=== PATIENT | female | born 1935 | race Caucasian/White ===

== ENCOUNTER 2017-04-29 08:10 | Inpatient (IN) | payer BC, OTHER ==
--- NOTE | 2017-04-03 10:54 | HISTORY & PHYSICAL EXAMINATION ---
DATE OF ADMISSION: 04/29/2017 PROCEDURE: Left knee replacement. HISTORY OF PRESENT ILLNESS: Angelia is a pleasant 81-year-old female who presents for preop evaluation prior to left knee replacement. She states she has been having pain in this knee for several years now which has gradually worsened. She had a previous knee arthroscopy in 2001, has tried oral anti-inflammatories, done physical therapy, tried a cortisone injection as well as viscosupplementation without relief. At this point in time, has failed conservative management and would like to proceed with left knee replacement. PAST MEDICAL HISTORY: 1. Hypertension. 2. History of pulmonary embolism. 3. Coronary artery disease, status post cardiac catheterization, most recent in 2010. 4. Osteoarthritis. 5. GERD. 6. Obesity. ALLERGIES: DEMEROL CAUSES VOMITING. MEDICATIONS: 1. Eliquis. 2. Metoprolol. 3. Nexium. 4. Calcium. 5. Valsartan. PAST SURGICAL HISTORY: 1. Ovarian cyst removed 1959. 2. Hysterectomy in 1969. 3. Laparoscopy in 1970. 4. Breast biopsy in 1978. 5. Left foot big toe surgery in 1979. 6. Closed reduction wrist fracture in 1990. 7. Cardiac catheterization 07/1997. 8. Excision of mass left groin 05/2001. 9. Left knee arthroscopy 04/2002. 10. Bone cyst removed from right index finger 2003. 11. Rectocele repair in 2005. 12. Cardiac catheterization in 2008 with stent to the LAD. 13. Cardiac catheterization and stent in 2010. FAMILY HISTORY: Noncontributory. SOCIAL HISTORY: The patient is and lives in a 1-story home with her , is self-employed. REVIEW OF SYSTEMS: Otherwise negative. Please see HPI for pertinent positives. PHYSICAL EXAMINATION: GENERAL: Tulio 81-year-old female in no acute distress, alert and oriented x3. VITAL SIGNS: She is 5 feet 4 inches, weighs 178 pounds. O2 sats 96%, pulse 62, blood pressure is 132/84. HEENT: Normocephalic, atraumatic. CARDIAC: Regular rate and rhythm. No murmurs or gallops appreciated. Resting pulse 62 beats per minute. LUNGS: Clear to auscultation without rales or wheeze bilaterally. ABDOMEN: Soft, nontender. Bowel sounds present. EXTREMITIES: Left lower extremity neurovascularly intact. Calves are soft and nontender. DP pulse +2. Demonstrates good quad tone. Straight leg raise without lag. No erythema or warmth. Has mild effusion. Positive crepitation with motion, range of motion is 0/5/110. IMAGING: Reviewed of left knee showed findings consistent with degenerative joint disease including joint space narrowing, subchondral sclerosis, peripheral osteophytes noted, has varus alignment with complete loss of joint space of the medial compartment. IMPRESSION: 1. Left knee degenerative joint disease. 2. Past medical history as outlined above. PLAN: Further care discussed with the patient. At this point in time, has failed conservative measures and would like to proceed with a left knee replacement. 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 We will plan on discharge home with home health physical therapy, otherwise has no other questions or concerns. 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 Andrea Becerra.
[2017-04-03 13:23] VITALS: Ht 162.6 cm; Wt 81.3 kg
--- NOTE | 2017-04-03 14:16 | PAT Medication Instructions ---
Service Date Apr 03, 2017. Current Home Medication List Acetaminophen (Tylenol), 1,000 MG PO PRN Acetaminophen (Tylenol Arthritis Ext Rel), 1,300 MG PO PRN Ascorbic Acid (Vitamin C), 1,000 MG PO QAM Aspirin (Aspirin Ec), 81 MG PO BID Calcium Carbonate-Cholecalcife (Caltrate 600+D), 1 TAB PO QAM Esomeprazole Magnesium (Nexium), 40 MG PO QAM Esomeprazole Magnesium (Nexium), 20 MG PO BID Fish Oil ([place]-3), 1 CAP PO QAM Metoprolol Tartrate (Lopressor) (Lopressor), 12.5 MG PO BID Polyethylene Glycol 3350 (Miralax), 17 GM PO PRN Sennosides-Docusate Sodium (Stool Softener), 13 TAB PO PRN Valsartan (Diovan), 40 MG PO QAM Medication Instructions For Your Scheduled Surgery - Hold the following medications 2 weeks prior to surgery: Fish Oil ([place]-3), 1 CAP PO QAM - One week prior to surgery, switch from two Aspirin 81mg per day to one Aspirin 81mg per day - Hold the following medications the morning of surgery: Ascorbic Acid (Vitamin C), 1,000 MG PO QAM Valsartan (Diovan), 40 MG PO QAM Calcium Carbonate-Cholecalcife (Caltrate 600+D), 1 TAB PO QAM Sennosides-Docusate Sodium (Stool Softener), 13 TAB PO PRN Polyethylene Glycol 3350 (Miralax), 17 GM PO PRN - Take the following medications the morning of surgery with a sip of water OTHERWISE NOTHING TO EAT OR DRINK AFTER MIDNIGHT: Acetaminophen (Tylenol), 1,000 MG PO PRN (may take if needed up to 4 hours prior to surgery) Acetaminophen (Tylenol Arthritis Ext Rel), 1,300 MG PO PRN (may take if needed up to 4 hours prior to surgery) Esomeprazole Magnesium (Nexium), 40 MG PO QAM Esomeprazole Magnesium (Nexium), 20 MG PO BID Esomeprazole Magnesium (Nexium), 40 MG PO QAM Metoprolol Tartrate (Lopressor) (Lopressor), 12.5 MG PO BID - Take the following medications as scheduled the night before surgery: Acetaminophen (Tylenol), 1,000 MG PO PRN Acetaminophen (Tylenol Arthritis Ext Rel), 1,300 MG PO PRN Esomeprazole Magnesium (Nexium), 20 MG PO BID Sennosides-Docusate Sodium (Stool Softener), 13 TAB PO PRN Polyethylene Glycol 3350 (Miralax), 17 GM PO PRN Metoprolol Tartrate (Lopressor) (Lopressor), 12.5 MG PO BID If you have any questions please call us at [phone] or [phone] or [phone]
[2017-04-03 14:39] LABS: BASO % 0.4 %; BASO ABS # 0.02 K/uL (0-0.2); COMPLETE YES; EOS % 2.6 %; HEMATOCRIT 38.1 % (37-47); IG% 0.2 %; LYMPH % 38.4 %; LYMPH ABS # 2.09 K/uL (1.2-3.4); MEAN CELL VOLUME 90.5 fL (80-100); MEAN CORPUSCULAR HEMOGLOBIN 30.4 pg (25-34); MEAN CORPUSCULAR HGB CONC 33.6 g/dl (32-36); MEAN PLATELET VOLUME 9.5 fL (7.4-10.4); NEUT % 51.4 %; PLATELET COUNT 189 K/uL (130-400); RED BLOOD COUNT 4.21 M/uL (4.2-5.4); WHITE BLOOD COUNT 5.44 K/uL (4.8-10.8)
[2017-04-03 14:47] LABS: INR 0.9 (0.9-1.1); PARTIAL THROMBOPLASTIN RATIO 0.9
--- NOTE | 2017-04-03 14:48 | DIAGNOSTIC IMAGING REPORT ---
CHEST PREADMISSION(PA/LAT) CLINICAL HISTORY: Preoperative chest. This be on exertion. COMPARISON STUDY: No previous studies for comparison. FINDINGS: The heart is the upper limits of normal in size. There is aortic tortuosity. There is no focal pulmonary consolidation. There are no pleural effusions. There is minimal left basilar atelectasis/scarring. There are several minor thoracic compression deformities.[ IMPRESSION: No active disease in the chest. Electronically signed by: Ignacio Cantu M.D. 04/03/2017 2:47 PM Dictated Date/Time: 04/03/2017 2:46 PM
[2017-04-03 14:53] LABS: URINE APPEARANCE CLEAR (CLEAR); URINE BILIRUBIN NEG (NEG); URINE COLOR YELLOW; URINE EPITHELIAL CELL AUTO 20-30 /lpf (0-5); URINE NITRITE NEG (NEG); URINE PH 5.5 (4.5-7.5); UROBILINOGEN NEG (NEG)
[2017-04-03 15:00] LABS: MANUAL MICROSCOPIC REQUIRED? NO; REVIEW REQ? NO
[2017-04-03 15:00] LABS: ESTIMATED AVERAGE GLUCOSE 123 mg/dl; HA1C FLAG Normal (Normal)
[2017-04-03 15:08] LABS: BUN/CREATININE RATIO 19.1 (10-20); CALCIUM 9.8 mg/dl (8.5-10.1); CREATININE 1.5 mg/dl (0.60-1.20); POTASSIUM 4.8 mmol/L (3.5-5.1)
[2017-04-29] VITALS (11 sets, daily range): BP systolic 109–176; BP diastolic 54–92; PULSE 55–68; TEMP 34.6–37; O2SAT 92–99
[~2017-04-29] VITALS: Ht 162.6 cm; Wt 81.3 kg
[~2017-04-29 08:10] MED LIST: ACET-1256 PO; ACET1TAB84 PO; ACETAMINOPHEN 500 MG TAB PO SCH; ASCO10003 PO; ASPI81TA28 PO; BUPIVACAINE 0.5 % 5 MG/1 ML PF 10ML VIAL ONE; CALC-354 PO; CEFAZOLIN 2000 MG/60 ML D5W 60 ML IV SCH; CeleBREX 200 MG CAP PO SCH; DEXAMETHASONE 4 MG TAB PO SCH; ESOM20CA PO; FAMOTIDINE 20 MG TAB PO SCH; GABAPENTIN 300 MG CAP PO SCH; LACTATED RINGER'S 1000ML 1,000 ML IV SCH; LACTATED RINGER'S 1000ML 500 ML IV ONE; METO25TA56 PO; METOCLOPRAMIDE HCL 10 MG TAB PO SCH; NXM/40 PO; OMEG10007 PO; POLY335019 PO; ROPIVACAINE 5MG/ML 30 ML 150 MG, BUPIVACAINE/EPINEPHR 0.5% MPF 30 ML, KETOROLAC TROMETH... INFIL SCH; SENNTAB23 PO; VALS40TA2 PO
--- NOTE | 2017-04-29 08:19 | History & Physical Bridge Note ---
H&P Re-Evaluation Bridge Note: I have examined the patient, reviewed the History & Physical and in the interval since the performance of the History & Physical I have noted the following changes of clinical significance: No changes noted
[2017-04-29] MEDS ORDERED: FENTANYL CITRATE INJ 50 MCG/1 ML 2 ML VIAL ONE (08:47)
[2017-04-29] MEDS ORDERED: MIDAZOLAM HCL 1 MG/ML 2ML VIAL ONE (08:47)
[2017-04-29] MEDS ORDERED: ATROPINE SULFATE 0.1 MG/ML 5ML SYR IV PRN (09:45)
[2017-04-29] MEDS ORDERED: ONDANSETRON INJ 2 MG/ML 2 ML VIAL IV PRN (09:45)
[2017-04-29] MEDS ORDERED: FENTANYL CITRATE INJ 50 MCG/1 ML 2 ML VIAL IV PRN (09:45)
[2017-04-29] MEDS ORDERED: EpHEDrine SULFATE INJ 50 MG/ML AMP IV PRN (09:45)
[2017-04-29] MEDS ORDERED: POVIDONE-IODINE OP SOLN 30 ML BTL ONE (10:04)
[2017-04-29] MEDS ORDERED: ORTHO JOINT ANESTHETIC ONE (10:04)
[2017-04-29] MEDS ORDERED: BACITRACIN 50000 UNIT VIAL ONE (10:04)
[2017-04-29] MEDS ORDERED: LIDOCAINE HCL 2% 2 ML VIAL (20MG/ML) ONE (10:59)
[2017-04-29] MEDS ORDERED: PROPOFOL IV EMULSION 10 MG/ML 20 ML VIAL IV ONE (10:59)
--- NOTE | 2017-04-29 11:48 | [facility] Operative Report ---
Operative Report Operative Date Apr 29, 2017. Pre-Operative Diagnosis Left knee degenerative joint disease Post-Operative Diagnosis same as preoperative Procedure(s) Performed left total knee arthroplasty using [employer]lett[employer] journey to total knee arthroplasty patient-matched size 4 femur to tibia 12 poly-[address] Sahni Natural Resource Technician Surgeon(s) Oscar Barnhart PA-C Estimated Blood Loss 5cc Findings Severe tricompartment DJD with varus alignment Specimens A. Left knee bone and tissue Complication(s) None Disposition Recovery Room / PACU Indications Severe tricompartmental DJD nonresponse to conservative management including injections and anti-inflammatories Roto-Rest activity modification Description of Procedure After proper prepping and draping of the left lower extremity anterior midline incision was made over the region of the extensor extensor mechanism after meticulous hemostasis was obtained and maintained in subcutaneous tissues a medial parapatellar incision was made The patella was subluxed lateralward the medial lateral gutter were cleaned from any hypertrophic synovitis and scar tissue of the distal femoral block was placed and the distal femoral osteotomy cut was made subsequently the chamfers anterior and posterior osteotomy cuts were made utilizing the 4-in-1 block the tibia was subsequently subluxed anteriorward medial and ateral meniscal remnants were excised in their entirety remnants of the anterior and posterior cruciate ligaments were excised in their entirety excellent exposure of the proximal tibia was obtained the tibial osteotomy guide was placed on the proximal tibial osteotomy cut was made once again the knee was irrigated with copious amounts of sterile saline solution the patella was subsequently everted lateralward thickened scar tissue around the patella was removed the patella was subsequently cut utilizing a freehand technique and was drilled prepared for final preparation and placement of patella socially flexion-extension gaps were checked and the equal and symmetric trials were placed to the appropriate femoral and tibial trials with poly-spacer being placed for equal flexion and extension gaps and full range of motion including extension to 0 and flexion to 140 the trial components after having been taken to recovery range of motion was subsequently removed meticulous hemostasis was obtained and maintained subsequently a knee block injection of joint cocktail including ropivacaine 0.5% 150 mg. Bupivacaine 0.5 % epinephrine 1-200,030 mL's toradol 30 mg dexamethasone 4 mg ketamine 10 mg clonidine 100 micrograms normal saline solution 30 mg was infiltrated into the soft tissues of the posterior knee medial lateral gutters and periosteal synovium special attention was paid to protect neurovascular structures at all times subsequently trial components having been removed the knee was irrigated with sterile saline solution. debris was removed the proximal tibia was subsequently prepared and was made ready for the placement of the tibial component tibial component was also cemented and tamped into position the femoral component was subsequently placed and cemented in the position the patellar component was subsequently cemented in position because hemostasis once again obtained and maintained wound having been thoroughly irrigated with debridement and debridement lavage was performed as well as a medial parapatellar incision closed with #1 Vicryl in interrupted fashion subcutaneous was closed with #2 Vicryl skin was closed with skin clips. PA-C was necessary for prepping and drapping as well as wound closure of deep fascia Sub cutaneous tissue and skin and was necessary for the case. A sterile compressive dressing was placed patient was taken to recovery in stable condition of report dictated by Bora I attest to the content of the Intraoperative Record and any orders documented therein. Any exceptions are noted below. I attest to the content of the Intraoperative Record and any orders documented therein. Any exceptions are noted below.
[2017-04-29] MEDS ORDERED: OXYCODONE HCL IR 5 MG TAB (IMMEDIATE RELEASE) PO PRN (12:30)
[2017-04-29] MEDS ORDERED: ALUMINUM/MAGNESIUM/SIMETH (MAALOX MAX) 30 ML UDC PO PRN (12:30)
[2017-04-29] MEDS ORDERED: MoRPHine SULFATE 2 MG/ML CARP IV PRN (12:30)
[2017-04-29] MEDS ORDERED: MAGNESIUM HYDROXIDE SUSP 30 ML UDC PO PRN (12:30)
[2017-04-29] MEDS ORDERED: BISACODYL 10 MG SUPP PR PRN (12:30)
--- NOTE | 2017-04-29 13:16 | DIAGNOSTIC IMAGING REPORT ---
LEFT KNEE 1 OR 2 VIEWS ROUTINE CLINICAL HISTORY: Postoperative evaluation. COMPARISON: None FINDINGS: Alignment of the total left knee arthroplasty is anatomic. There is no fracture or unexpected radiopaque foreign body. Drains and skin horace are present. IMPRESSION: Expected findings following total left knee arthroplasty. Electronically signed by: Deangelo John M.D. 04/29/2017 1:15 PM Dictated Date/Time: 04/29/2017 1:12 PM
--- NOTE | 2017-04-29 14:27 | Anesthesiology Progress Note ---
Anesthesia Post Op Note Date & Time Apr 29, 2017 at 14:26 Vital Signs Pain Intensity: 0.0 Vital Signs Past 12 Hours Date Time Temp Pulse Resp B/P (MAP) Pulse Ox O2 Delivery O2 Flow Rate FiO2 04/29/17 14:15 36.4 68 16 132/79 (96) 98 Room Air 04/29/17 13:48 36.3 62 16 153/82 (105) 94 Nasal Cannula 2.0 04/29/17 13:31 99 Nasal Cannula 2.0 04/29/17 13:10 34.6 58 18 149/82 (104) 99 Nasal Cannula 2.0 04/29/17 13:00 60 16 133/66 99 Oxymask 2 04/29/17 12:50 36.3 63 14 124/83 99 Oxymask 2 04/29/17 12:40 63 14 119/72 99 Oxymask 2 04/29/17 12:30 63 18 148/82 98 Oxymask 2 04/29/17 12:23 36.8 64 18 124/77 98 Oxymask 5 04/29/17 09:12 36.4 64 20 176/92 95 Room Air Notes Mental Status: alert / awake / arousable, participated in evaluation Pt Amnestic to Procedure: Yes Nausea / Vomiting: adequately controlled Pain: adequately controlled Airway Patency, RR, SpO2: stable & adequate BP & HR: stable & adequate Hydration State: stable & adequate Neuraxial Anesthesia: was administered, sensory block is resolving Anesthetic Complications: no major complications apparent
[2017-04-29] MEDS: TRANEXAMIC ACID INJ 1,000 MG in SODIUM CHLORIDE 0.9% 100ML 100 ML IV SCH ×2 (15:11→15:12)
[2017-04-29] MEDS: D5W AND 1/2NSS + 20MEQ KCL 1,000 ML IV SCH (15:11)
[2017-04-29] MEDS: ACETAMINOPHEN 500 MG TAB PO SCH ×2 (15:12→22:15)
--- NOTE | 2017-04-29 15:54 | Medical Consult ---
Consultation Date of Consultation: Apr 29, 2017. Attending Physician: Gal Sahni D.O. History of Present Illness This is an 81 yo F with PMHx of hypertension, hx of PE, CAD s/p cardiac cath in 2010, osteoarthritis, gerd, and obesity who presents for an elective L TKA by Dr. Sahni on 04/29/19. She is present with her , and two sisters. She reports doing well so far. Initially when she came out of surgery she had significant nausea and needed an antiemetic, but it has since subsided to where she can tolerate fluids. She denies having significant pain, and denies numbness or tingling in her distal extremity. She is burping some, but denies passing flatus. Past Medical/Surgical History Medical Hx: 1. hypertension 2. hx of PE and DVT in 2015 on Eliquis 3. CAD x 1 stent to LAD in 2008, repeat cardiac cath in 2010 without intervention 4. Osteoarthritis 5. GERD 6. Obesity with BMI = 30.8 Surgical Hx 1. Ovarian cyst removed 1959. 2. Hysterectomy in 1969. 3. Laparoscopy in 1970. 4. Breast biopsy in 1978. 5. Left foot big toe surgery in 1979. 6. Closed reduction wrist fracture in 1990. 7. Cardiac catheterization 07/1997. 8. Excision of mass left groin 05/2001. 9. Left knee arthroscopy 04/2002. 10. Bone cyst removed from right index finger 2003. 11. Rectocele repair in 2005. 12. Cardiac catheterization in 2008 with stent to the LAD. 13. Cardiac catheterization and stent in 2010. Social History Smoking Status: Never Smoker Alcohol Use: none Drug Use: none Marital Status: Housing Status: lives with family, lives with significant other Occupation Status: retired Allergies Coded Allergies: Meperidine (Verified Adverse Reaction, Mild, n/v, 04/29/17) Pentazocine (Verified Adverse Reaction, Mild, n/v, 04/29/17) Current Inpatient Medications Current Inpatient Medications Medications (Trade) Dose Ordered Sig/Dale Route Start Time Stop Time Status Last Admin Dose Admin Lactated Ringer's 1,000 ml @ 60 mls/hr [id number] IV 04/29/17 06:00 04/29/17 22:39 04/29/17 09:34 60 MLS/HR Cefazolin Sodium 60 ml @ 100 mls/hr PREOP IV 04/29/17 06:00 04/29/17 18:00 04/29/17 10:51 100 MLS/HR Acetaminophen (Tylenol Tab) 1,000 mg PREOP PO 04/29/17 06:00 04/29/17 18:00 04/29/17 09:31 1,000 MG Celecoxib (CeleBREX CAP) 200 mg PREOP PO 04/29/17 06:00 04/29/17 18:00 04/29/17 09:34 200 MG Dexamethasone (Decadron Tab) 8 mg PREOP PO 04/29/17 06:00 04/29/17 18:00 04/29/17 09:33 8 MG Famotidine (Pepcid Tab) 20 mg PREOP PO 04/29/17 06:00 04/29/17 18:00 04/29/17 09:31 20 MG Gabapentin (Neurontin Cap) 300 mg PREOP PO 04/29/17 06:00 04/29/17 18:00 04/29/17 09:34 300 MG Metoclopramide HCl (Reglan Tab) 10 mg PREOP PO 04/29/17 06:00 04/29/17 18:00 04/29/17 09:32 10 MG Tranexamic Acid 1000 mg/Sodium Chloride 110 ml @ 660 mls/hr TODAY@06,0630 IV 04/29/17 06:00 04/29/17 18:00 Ropivacaine 150 mg/Bupivacaine HCl/Epinephrine Bitart 30 ml/ Ketorolac Tromethamine 30 mg/Dexamethasone Sodium Phosphate 4 mg/Ketamine HCl 10 mg/Clonidine 100 mcg/Sodium Chloride 30 ml/ Empty Bag 93.2 ml @ 0 mls/hr TODAY@06 INFIL 04/29/17 06:00 04/29/17 18:00 04/29/17 11:23 93.2 MLS/HR Lactated Ringer's 1,000 ml @ 15 mls/hr Q24H IV 04/29/17 06:00 04/30/17 05:59 Aspirin (Ecotrin Tab) 81 mg BID PO 04/29/17 21:00 05/29/17 20:59 Metoprolol Tartrate (Lopressor Tab) 12.5 mg BID PO 04/29/17 21:00 05/29/17 20:59 Valsartan (Diovan Tab) 40 mg QAM PO 04/30/17 09:00 05/30/17 08:59 Morphine Sulfate (MoRPHine SULFATE INJ) 2 mg Q4HWA PRN IV 04/29/17 12:30 05/13/17 12:29 Cefazolin Sodium 2000 mg/Dextrose 60 ml @ 100 mls/hr Q8H IV 04/29/17 18:00 04/30/17 02:35 Oxycodone HCl (Roxicodone Immediate Rel Tab) 1 TABLET FOR PAIN RATING... Q4H PRN PO 04/29/17 12:30 05/13/17 12:29 Acetaminophen (Tylenol Tab) 1,000 mg Q8H PO 04/29/17 14:00 05/29/17 13:59 04/29/17 15:12 1,000 MG Magnesium Hydroxide (Milk Of Magnesia Susp) 30 ml Q6H PRN PO 04/29/17 12:30 05/29/17 12:29 Bisacodyl (Dulcolax Supp) 10 mg DAILY PRN ND 04/29/17 12:30 05/29/17 12:29 Senna (Senokot Tab) 17.2 mg HS PO 04/29/17 21:00 05/29/17 20:59 Docusate Sodium (coLACE CAP) 100 mg BID PO 04/29/17 21:00 05/29/17 20:59 Al Hydrox/Mg Hydrox/Simethicone (Maalox Max Susp) 15 ml Q4H PRN PO 04/29/17 12:30 05/29/17 12:29 Multivitamins (Multivitamin Tab) 1 tab QAM PO 04/30/17 09:00 05/30/17 08:59 Ondansetron HCl (Zofran Inj) 4 mg Q6H PRN IV 04/29/17 12:30 05/29/17 12:29 Ferrous Gluconate (Ferrous Gluconate Tab) 324 mg TIDM PO 04/29/17 17:45 05/29/17 17:59 Pantoprazole Sodium (Protonix Tab) 40 mg QAM PO 04/30/17 09:00 05/30/17 08:59 Tramadol HCl (Ultram Tab) 1 tablet for pain rating... Q4H PRN PO 04/29/17 12:30 05/29/17 12:29 Potassium Chloride/Dextrose/ Sod Cl 1,000 ml @ 100 mls/hr Q10H IV 04/29/17 14:00 04/30/17 13:06 04/29/17 15:11 100 MLS/HR Review of Systems Constitutional: No fever, No chills, No sweats, No fatigue Eyes: No diplopia ENT: No sore throat, No trouble swallowing Respiratory: No cough, No shortness of breath, No dyspnea on exertion Cardiovascular: No chest pain, No palpitations Abdomen: No pain, No vomiting, No diarrhea Musculoskeletal: No joint pain, No swelling Genitourinary - Female: No dysuria Neurologic: No memory loss, No numbness/tingling Endocrine: No fatigue Integumentary: No rash, No itch Physical Exam Date Time Temp Pulse Resp B/P (MAP) Pulse Ox O2 Delivery O2 Flow Rate FiO2 04/29/17 15:10 36.3 66 18 131/54 (79) 97 Nasal Cannula 4.0 04/29/17 14:15 36.4 68 16 132/79 (96) 98 Room Air 04/29/17 13:48 36.3 62 16 153/82 (105) 94 Nasal Cannula 2.0 04/29/17 13:31 99 Nasal Cannula 2.0 04/29/17 13:10 34.6 58 18 149/82 (104) 99 Nasal Cannula 2.0 04/29/17 13:00 60 16 133/66 99 Oxymask 2 04/29/17 12:50 36.3 63 14 124/83 99 Oxymask 2 04/29/17 12:40 63 14 119/72 99 Oxymask 2 04/29/17 12:30 63 18 148/82 98 Oxymask 2 04/29/17 12:23 36.8 64 18 124/77 98 Oxymask 5 04/29/17 09:12 36.4 64 20 176/92 95 Room Air General Appearance: WD/WN, no apparent distress Head: normocephalic, atraumatic Eyes: PERRL, EOMI ENT: hearing grossly normal, pharynx normal Neck: supple, no JVD Respiratory/Chest: lungs clear, no respiratory distress, no accessory muscle use Cardiovascular: regular rate, rhythm, no murmur, normal peripheral pulses Abdomen/GI: non tender, soft, + pertinent finding (hypoactive bowel sounds) Back: normal inspection Extremities/Musculoskelatal: no calf tenderness, no pedal edema, + pertinent finding (Left leg in RONI wrap, ice pack in place. ) Neurologic/Psych: alert, normal mood/affect, oriented x 3 Skin: normal color, warm/dry Assessment & Plan This is an 81 yo F with PMHx of hypertension, hx of PE, CAD s/p cardiac cath in 2010, osteoarthritis, gerd, and obesity who presents for an elective L TKA by Dr. Sahni on 04/29/19. R TKA on 04/29/17 - Analgesia and bowel regimen per primary team - Continue ASA 81 mg BID for dvt ppx, pt was previously on Eliquis for hx of DVT and PE which was held prior to this surgical procedure. Pt reports she was not doing well on Eliquis although has taken it appropriately for 1 year. She reports mottling skin specifically. Would recommend at least continue for 1 month, and would recommend that her PCP decide regarding d/c. At this time will ask ortho to restart Eliquis tomorrow evening to wait 24 hours. Pt may need 2.5 mg dosing depending on Cr. tomorrow morning, await am labs. - PT/OT evals - Follow am CBC - Antiemetics for nausea prn CAD s/p cardiac cath in 2008 HTN - Metoprolol tartrate 12.5 mg BID, valsartan 40 mg BID - Eliquis currently on hold, resume when safe per primary team Hx of PE and DVT - Discussion regarding eliquis as above CKD stage III - Cr. baseline of 1/4 - 1.5, follow am PRP. GERD - Cont pantoprazole 40 mg QAM DVT ppx: asa 81 mg BID, teds, scds CODE STATUS: FULL CODE Disposition: From home, open to both rehab stay and home with PT/OT services depending on how she does in house, discharge likely in 2 days. Reviewed: Pt Seen/Exam by Me History Physician Admissions Nurse Supervision Note: I interviewed and examined the patient. Discussed with MOI Felipe and agree with findings and plan as documented in the note. Any exceptions or clarifications are listed here: Pt was cleared to STOP HER ELIQUIS about 1.5 months ago after discussion with her Child Welfare Manager and her PCP. Her hypercoag workup was negative and her PE was provoked by a long car ride. Therefore, she will be on ASA bid for DVT prophylaxis post-op Pt still having nausea this evening which is typical for her post-op from anesthesia Vitals reviewed NAD, AAOx3 RRR no mgr CTAB no wcr Abd +BS soft NT ND Ext Left knee with RONI in place, moving feet and toes, Right leg no edema, no calf tenderness 81 yo female with Left TKA, h/o PE now OFF ELIQUIS. -ASA 81 bid for DVT proph -pain control antiemetics -continue home BP meds Documented By: Malu Moran
[2017-04-29] MEDS: FERROUS GLUCONATE 324 MG TAB PO SCH (18:19)
[2017-04-29] MEDS: CEFAZOLIN IV 2,000 MG in DEXTROSE 5% 50ML 50 ML IV SCH (18:22)
[2017-04-29] MEDS: ONDANSETRON INJ 2 MG/ML 2 ML VIAL IV PRN (18:23)
[2017-04-29] MEDS: ASPIRIN 81 MG ECTAB PO SCH (22:14)
[2017-04-29] MEDS: DOCUSATE SODIUM 100 MG CAP PO SCH (22:14)
[2017-04-29] MEDS: METOPROLOL TARTRATE 25 MG TAB PO SCH (22:15)
[2017-04-29] MEDS: SENNA 8.6 MG TAB PO SCH (22:20)
[2017-04-30] VITALS (8 sets, daily range): BP systolic 114–128; BP diastolic 70–81; PULSE 60–66; TEMP 36.3–36.6; O2SAT 94–98
[2017-04-30] MEDS: CEFAZOLIN IV 2,000 MG in DEXTROSE 5% 50ML 50 ML IV SCH (01:31)
[2017-04-30] MEDS: D5W AND 1/2NSS + 20MEQ KCL 1,000 ML IV SCH (01:31)
[2017-04-30] MEDS: ACETAMINOPHEN 500 MG TAB PO SCH ×3 (05:41→21:16)
[2017-04-30 05:58] LABS: HEMATOCRIT 33.7 % (37-47); MEAN CELL VOLUME 88.2 fL (80-100); MEAN CORPUSCULAR HEMOGLOBIN 29.8 pg (25-34); MEAN CORPUSCULAR HGB CONC 33.8 g/dl (32-36); MEAN PLATELET VOLUME 9.6 fL (7.4-10.4); PLATELET COUNT 188 K/uL (130-400); RED BLOOD COUNT 3.82 M/uL (4.2-5.4)
[2017-04-30 06:31] LABS: BUN/CREATININE RATIO 19.3 (10-20); CALCIUM 8.8 mg/dl (8.5-10.1); CREATININE 1.2 mg/dl (0.60-1.20); POTASSIUM 4.6 mmol/L (3.5-5.1)
[2017-04-30] MEDS: FERROUS GLUCONATE 324 MG TAB PO SCH ×3 (08:23→18:03)
[2017-04-30] MEDS: PANTOprazole SOD 40 MG TAB PO SCH (08:24)
[2017-04-30] MEDS: VALSARTAN 80 MG TAB PO SCH (08:24)
[2017-04-30] MEDS: ASPIRIN 81 MG ECTAB PO SCH ×2 (08:24→21:15)
[2017-04-30] MEDS: MULTIVITAMIN TAB PO SCH (08:24)
[2017-04-30] MEDS: DOCUSATE SODIUM 100 MG CAP PO SCH ×2 (08:24→21:15)
[2017-04-30] MEDS: METOPROLOL TARTRATE 25 MG TAB PO SCH ×2 (08:25→21:15)
--- NOTE | 2017-04-30 08:25 | Anesthesiology Progress Note ---
Anesthesia Post Op Note Date & Time Apr 30, 2017 at 08:25 Vital Signs Pain Intensity: 0.0 Vital Signs Past 12 Hours Date Time Temp Pulse Resp B/P (MAP) Pulse Ox O2 Delivery O2 Flow Rate FiO2 04/30/17 03:23 36.3 65 18 121/72 (88) 94 Room Air 04/29/17 23:30 Room Air 04/29/17 23:11 36.4 64 18 113/59 (77) 92 Room Air 04/29/17 20:53 36.6 64 16 109/66 (80) 92 Room Air Notes Mental Status: alert / awake / arousable, participated in evaluation Pt Amnestic to Procedure: Yes Nausea / Vomiting: adequately controlled, improving with treatment Pain: adequately controlled Airway Patency, RR, SpO2: stable & adequate BP & HR: stable & adequate Hydration State: stable & adequate Neuraxial Anesthesia: sensory block resolved Anesthetic Complications: no major complications apparent
--- NOTE | 2017-04-30 10:15 | Orthopedic Progress Note ---
Orthopedic Progress Note Date of Service Apr 30, 2017. Subjective Post OP Day: 1 Reports: feeling well Objective N/V intact, dressing C/D/I (Hemovac in place), toes mobile Date Time Temp Pulse Resp B/P (MAP) Pulse Ox O2 Delivery O2 Flow Rate FiO2 04/30/17 09:36 36.3 60 14 128/72 (90) 98 Room Air 04/30/17 03:23 36.3 65 18 121/72 (88) 94 Room Air 04/29/17 23:30 Room Air 04/29/17 23:11 36.4 64 18 113/59 (77) 92 Room Air 04/29/17 20:53 36.6 64 16 109/66 (80) 92 Room Air 04/29/17 16:15 36.6 60 18 136/78 (97) 97 Nasal Cannula 3.0 04/29/17 16:08 37.0 65 18 117/74 (88) 97 Nasal Cannula 4.0 04/29/17 15:40 Nasal Cannula 2.0 04/29/17 15:10 36.3 66 18 131/54 (79) 97 Nasal Cannula 4.0 04/29/17 14:15 36.4 68 16 132/79 (96) 98 Room Air 04/29/17 13:48 36.3 62 16 153/82 (105) 94 Nasal Cannula 2.0 04/29/17 13:31 99 Nasal Cannula 2.0 04/29/17 13:10 34.6 58 18 149/82 (104) 99 Nasal Cannula 2.0 04/29/17 13:00 60 16 133/66 99 Oxymask 2 04/29/17 12:50 36.3 63 14 124/83 99 Oxymask 2 04/29/17 12:40 63 14 119/72 99 Oxymask 2 04/29/17 12:30 63 18 148/82 98 Oxymask 2 04/29/17 12:23 36.8 64 18 124/77 98 Oxymask 5 Laboratory Results 24 Hours: Test 04/30/17 05:31 Hematocrit 33.7 % Hemoglobin 11.4 g/dL Assessment & Plan Assessment: 81 yo female stable POD #1 s/p left TKA Plan: 1. Med management 2. DVT prophylaxis- ASA, SCDs, resume Eliquis ? 3. PT/OT 4. D/C planning- home w/ HH vs rehab
--- NOTE | 2017-04-30 11:09 | Progress Note ---
Subjective Date of Service: Apr 30, 2017. Subjective Pt evaluation today including: conversation w/ patient, conversation w/ family , physical exam, chart review, lab review, review of studies, conversation w/ market research consultant, review of inpatient medication list Report was having a lot of nausea edition post op yesterday For today has been doing well No more nausea Tolerate diet Generally doing okay, pain fairly controlled, deny fever or chill, deny constipation, Review of Systems Constitutional: No fever, No chills, No sweats, No weight loss, No weakness, No fatigue, No problem reported Eyes: No worsening of vision, No eye pain, No redness, No discharge, No diplopia ENT: No hearing loss, No unusual epistaxis, No nasal symptoms, No sore throat, No tinnitus, No dental problems, No trouble swallowing Respiratory: No cough, No sputum, No wheezing, No shortness of breath, No dyspnea on exertion, No dyspnea at rest, No hemoptysis Cardiac: No chest pain, No orthopnea, No PND, No edema, No claudication, No palpitations Abdomen: No pain, No nausea, No vomiting, No diarrhea, No constipation Musculoskeletal: + joint pain, No muscle pain, No swelling, No calf pain Female : No dysuria, No urinary frequency, No hematuria, No incontinence, No abnormal vaginal bleeding, No vaginal discharge Neurologic: No memory loss, No paralysis, No weakness, No numbness/tingling, No vertigo, No balance problems Psychiatric: No depression symptoms, No anhedonism, No anxiety, No insomnia, No substance abuse Heme: No abnormal bleeding/bruising, No clotting problems, No swollen lymph nodes, No night sweats Endo: No fatigue, No excessive thirst, No excessive urination Skin: No rash, No itch, No new/changing skin lesions, No color change, No bleeding Objective Vital Signs Date Time Temp Pulse Resp B/P (MAP) Pulse Ox O2 Delivery O2 Flow Rate FiO2 04/30/17 09:36 36.3 60 14 128/72 (90) 98 Room Air 04/30/17 08:15 Room Air 04/30/17 03:23 36.3 65 18 121/72 (88) 94 Room Air 04/29/17 23:30 Room Air 04/29/17 23:11 36.4 64 18 113/59 (77) 92 Room Air 04/29/17 20:53 36.6 64 16 109/66 (80) 92 Room Air 04/29/17 16:15 36.6 60 18 136/78 (97) 97 Nasal Cannula 3.0 04/29/17 16:08 37.0 65 18 117/74 (88) 97 Nasal Cannula 4.0 04/29/17 15:40 Nasal Cannula 2.0 04/29/17 15:10 36.3 66 18 131/54 (79) 97 Nasal Cannula 4.0 04/29/17 14:15 36.4 68 16 132/79 (96) 98 Room Air 04/29/17 13:48 36.3 62 16 153/82 (105) 94 Nasal Cannula 2.0 04/29/17 13:31 99 Nasal Cannula 2.0 04/29/17 13:10 34.6 58 18 149/82 (104) 99 Nasal Cannula 2.0 04/29/17 13:00 60 16 133/66 99 Oxymask 2 04/29/17 12:50 36.3 63 14 124/83 99 Oxymask 2 04/29/17 12:40 63 14 119/72 99 Oxymask 2 04/29/17 12:30 63 18 148/82 98 Oxymask 2 04/29/17 12:23 36.8 64 18 124/77 98 Oxymask 5 Physical Exam General Appearance: WD/WN, no apparent distress Eyes: normal inspection, PERRL, EOMI, sclerae normal ENT: normal ENT inspection, hearing grossly normal, pharynx normal Neck: supple, no adenopathy, thyroid normal, no JVD, no carotid bruits, trachea midline Respiratory/Chest: chest non-tender, normal breath sounds, no respiratory distress, no accessory muscle use, + decreased breath sounds Cardiovascular: regular rate, rhythm, no edema, no gallop, no JVD, no murmur Abdomen: normal bowel sounds, non tender, soft, no organomegaly, no pulsatile mass Extremities: normal range of motion, non-tender, normal inspection, no pedal edema, no calf tenderness, normal capillary refill, pelvis stable Neurologic/Psychiatric: dragline oiler II-XII nml as tested, no motor/sensory deficits, alert, normal mood/affect, oriented x 3 Skin: normal color, warm/dry, no rash Lymphatic: no adenopathy Laboratory Results Last 24 Hours Test 04/30/17 05:31 White Blood Count 9.80 K/uL Red Blood Count 3.82 M/uL Hemoglobin 11.4 g/dL Hematocrit 33.7 % Mean Corpuscular Volume 88.2 fL Mean Corpuscular Hemoglobin 29.8 pg Mean Corpuscular Hemoglobin Concent 33.8 g/dl RDW Standard Deviation 41.4 fL RDW Coefficient of Variation 12.8 % Platelet Count 188 K/uL Mean Platelet Volume 9.6 fL Sodium Level 136 mmol/L Potassium Level 4.6 mmol/L Chloride Level 105 mmol/L Carbon Dioxide Level 24 mmol/L Anion Gap 7.0 mmol/L Blood Urea Nitrogen 23 mg/dl Creatinine 1.20 mg/dl Est Creatinine Clear Calc Drug Dose 36.7 ml/min Estimated GFR () 48.4 Estimated GFR (Non- 41.8 BUN/Creatinine Ratio 19.3 Random Glucose 164 mg/dl Calcium Level 8.8 mg/dl Assessment and Plan 81 yo female with Left TKA to orthopedic service, hospitalist consulted for medical management h/o PE now OFF ELIQUIS. Per document, Pt was cleared to STOP HER ELIQUIS about 1.5 months ago after discussion with her Lpn Or Medical Assistant and her PCP. Her hypercoag workup was negative and her PE was provoked by a long car ride. I confirm the important information with patient's and patient . Therefore, will be on ASA bid for DVT prophylaxis post-op, -ASA 81 bid for DVT proph -pain control antiemetics as needed Hypertension continue home BP meds Discussed with patient and answered all question Continued [facility] stay due to: other Discharge planning: other (discharge plan will be per primary team)
--- NOTE | 2017-04-30 18:44 | Discharge Instructions ---
Discharge Instructions Date of Service Apr 30, 2017. Admission Reason for Admission: Left Knee Osteoarthritis Discharge Discharge Diagnosis / Problem: Left Total Knee Replacement Discharge Goals Goal(s): Decrease discomfort, Improve function, Increase independence Activity Recommendations Activity Limitations: as noted below Weightbearing Status: Left weightbearing (as tolerated) . Instructions / Follow-Up Instructions / Follow-Up ACTIVITY RECOMMENDATIONS: SELF CARE INSTRUCTIONS AFTER TOTAL KNEE REPLACEMENT A. You may need to continue a physical therapy program after discharge from the hospital. There are several options available to you. Your doctor will assist you in selecting the best one for you. 1. An out-patient facility 2 to 3 times a week for therapy or home therapy. 2. Continue working on all exercises taught to you in the hospital. Your goals should be to increase bending of your knee to 90 degrees and beyond and to fully straighten your knee. B. You may progress at your own pace from walking with a walker or crutches to a cane; then to no assistive devices. C. Make walking a part of your daily routine. Be up as much as comfortable with rest periods throughout the day. Rest with leg elevation is very important. Use the ice wrap frequently for the first 3-4 weeks. D. There are no restrictions on activities. You may ride in a car, shop, participate in newspaper inserter and all social activities. E. Wear the long elastic stockings (YUE hose) 20 hours a day for 2 weeks after surgery. They can be removed several times a day for laundering and for a bath. F. You may shower, no tub baths until cleared by your doctor. SPECIAL CARE INSTRUCTIONS: VERY IMPORTANT TO READ AND REVIEW A. There are a few signs you need to watch for after you are home. Call [facility] if you notice any of the followin. Increased severe knee pain. Some pain is expected especially when you exercise. 2. Increased swelling in your leg or knee; pain or swelling of the calf muscle in either lower leg. 3. Any fluid drainage from the incision. 4. Shortness of breath or chest pain. B. Please call [facility] at if you have any concerns or questions about your operation or recovery. The doctor or his nurse will return your call promptly. C. You must take antibiotics before dental work, bladder, bowel or other surgery. Your doctor will provide you with a permanent care to carry describing this precaution. IMPORTANT: * REMEMBER TO TAKE ASPIRIN, 81 MG, TWICE DAILY FOR 4 WEEKS UNLESS OTHERWISE DIRECTED. THIS IS YOUR BLOOD THINNER. * HIGH RISK PATIENTS MAY BE PRESCRIBED A STRONGER BLOOD THINNER. THIS WILL BE PROVIDED AT DISCHARGE. * CALL IF INCREASED PAIN, REDNESS, DRAINAGE OR FEVER GREATER THAT 101. * WEAR YUE HOSE 20 HOURS PER DAY FOR 2 WEEKS. * YOU MAY HAVE A LARGE BAND-AID LIKE DRESSING (SILVERON). THIS WILL REMAIN ON YOUR INCISION FOR 7 DAYS, THEN CAN BE REMOVED. IF INCISION IS LEAKING THROUGH DRESSING, CALL THE OFFICE . DERMABOND Prineo- This is a mesh tape dressing that is covered with glue. It should remain in place until the incision is properly healed, usually 10-14 days. This dressing is designed to naturally slough off. You may trim the excess mesh tape as it peels off. Incision may be briefly wet in a shower. Dry immediately by blotting with a clean, dry towel. Do not bath or swim until instructed by your doctor. Do not scratch, rub, or pick at the dressing. Do not apply any topical ointments or lotions until dressing is completely removed and/or instructed by your doctor. There may be a small piece of suture material at one end of your incision. Do not pull or trim this. If it is bothersome or catching on clothing, you may cover it with a band-aid. FOLLOW UP VISIT: If appointment is not already scheduled: Please call [facility] to make a follow-up appointment for 2 weeks after your surgery at . Current Hospital Diet Patient's current hospital diet: AHA Diet (Heart Healthy) Discharge Diet Recommended Diet: AHA Diet (Heart Healthy) Procedures Procedures Performed: left total knee arthroplasty using [facility] journey to total knee arthroplasty patient-matched size 4 femur to tibia 12 poly-29 oval patella Pending Studies Studies pending at discharge: no Laboratory Results Hemoglobin A1c Test 04/03/17 14:25 Range/Units Estimated Average Glucose 123 mg/dl Hemoglobin A1c 5.9 H 4.5-5.6 % Medical Emergencies . Who to Call and When: Medical Emergencies: If at any time you feel your situation is an emergency, please call 911 immediately. . Non-Emergent Contact Non-Emergency issues call your: Primary Care Provider, Surgeon . "Provider Documentation" section prepared by Prabhjot Sorto. . VTE Core Measure Inpt VTE Proph given/why not?: Other Anticoagulation (ASA 81mg po bid x1 month) , T.E.D. Stockings, SCD's [place] Drug Monitoring Program Search Results: patient reviewed within database, no issues identified
[2017-04-30] MEDS: SENNA 8.6 MG TAB PO SCH (21:00)
[2017-05-01] MEDS: ONDANSETRON INJ 2 MG/ML 2 ML VIAL IV PRN ×3 (01:33→14:23)
[2017-05-01] MEDS: TRAMADOL HCL 50 MG TAB PO PRN ×3 (01:34→09:54)
[2017-05-01] MEDS: ACETAMINOPHEN 500 MG TAB PO SCH ×2 (05:46→15:17)
[2017-05-01] MEDS: PANTOprazole SOD 40 MG TAB PO SCH (07:24)
--- NOTE | 2017-05-01 07:27 | Orthopedic Progress Note ---
Orthopedic Progress Note Date of Service May 01, 2017. Subjective Post OP Day: 2 Reports: feeling well, pain controlled w PO medications, Denies: complaints, chest pain, SOB, nausea / vomiting, light headedness, calf pain Objective calves soft nontender, N/V intact, capillary refill less than 2 sec., dressing C /D/I (silverlon intact), A&O x3, toes mobile Date Time Temp Pulse Resp B/P (MAP) Pulse Ox O2 Delivery O2 Flow Rate FiO2 04/30/17 23:10 Room Air 04/30/17 23:09 36.6 64 18 114/71 (85) 94 Room Air 04/30/17 21:07 66 125/81 (96) 04/30/17 16:20 Room Air 04/30/17 16:20 36.6 04/30/17 15:27 36.4 63 18 125/79 (94) 96 Room Air 04/30/17 14:16 36.4 60 16 128/70 (89) 98 Room Air 04/30/17 11:05 98 Room Air 04/30/17 09:36 36.3 60 14 128/72 (90) 98 Room Air 04/30/17 08:15 Room Air Assessment & Plan Assessment: 81 yo female stable POD #2 s/p left TKA Plan: 1. Med management 2. DVT prophylaxis- ASA, SCDs 3. PT/OT 4. D/C planning- home w/ HH Inhouse Planning DVT Prophylaxis: TEDs, SCDs, ASA Discharge Planning Discharge Planning: home with home health
[2017-05-01 07:29] VITALS: BP 132/74; PULSE 62; TEMP 36.7; O2SAT 92
[2017-05-01] MEDS ORDERED: ACET-24 PO (07:30)
[2017-05-01] MEDS ORDERED: CLC100 PO (07:30)
[2017-05-01] MEDS ORDERED: ONDA8TAB6 PO (07:30)
[2017-05-01] MEDS ORDERED: RXC5 PO (07:30)
[2017-05-01] MEDS ORDERED: ULT50X PO (07:30)
[2017-05-01] MEDS: FERROUS GLUCONATE 324 MG TAB PO SCH ×2 (08:30→11:02)
[2017-05-01] MEDS: METOPROLOL TARTRATE 25 MG TAB PO SCH (08:42)
[2017-05-01] MEDS: DOCUSATE SODIUM 100 MG CAP PO SCH (08:42)
[2017-05-01] MEDS: MULTIVITAMIN TAB PO SCH (08:43)
[2017-05-01] MEDS: VALSARTAN 80 MG TAB PO SCH (08:43)
[2017-05-01] MEDS: ASPIRIN 81 MG ECTAB PO SCH (08:43)
--- NOTE | 2017-05-01 09:22 | Progress Note ---
Subjective Date of Service: May 01, 2017. Subjective Pt evaluation today including: conversation w/ patient, conversation w/ family , physical exam, chart review, lab review, review of studies, conversation w/ corporate travel consultant, review of inpatient medication list Report continue to have mild nausea, however tolerate food well, has bowel movement yesterday The pain has been fairly controlled No other complaint Review of Systems Constitutional: No fever, No chills, No sweats, No weight loss, No weakness, No fatigue, No problem reported Eyes: No worsening of vision, No eye pain, No redness, No discharge, No diplopia ENT: No hearing loss, No unusual epistaxis, No nasal symptoms, No sore throat, No tinnitus, No dental problems, No trouble swallowing Respiratory: No cough, No sputum, No wheezing, No shortness of breath, No dyspnea on exertion, No dyspnea at rest, No hemoptysis Cardiac: No chest pain, No orthopnea, No PND, No edema, No claudication, No palpitations Abdomen: + nausea, No pain, No vomiting, No diarrhea, No constipation Musculoskeletal: No joint pain, No muscle pain, No swelling, No calf pain Female : No dysuria, No urinary frequency, No hematuria, No incontinence, No abnormal vaginal bleeding, No vaginal discharge Neurologic: No memory loss, No paralysis, No weakness, No numbness/tingling, No vertigo, No balance problems Psychiatric: No depression symptoms, No anhedonism, No anxiety, No insomnia, No substance abuse Heme: No abnormal bleeding/bruising, No clotting problems, No swollen lymph nodes, No night sweats Endo: No fatigue, No excessive thirst, No excessive urination Skin: No rash, No itch, No new/changing skin lesions, No color change, No bleeding Objective Vital Signs Date Time Temp Pulse Resp B/P (MAP) Pulse Ox O2 Delivery O2 Flow Rate FiO2 05/01/17 07:29 36.7 62 18 132/74 (93) 92 Room Air 05/01/17 07:26 Room Air 04/30/17 23:10 Room Air 04/30/17 23:09 36.6 64 18 114/71 (85) 94 Room Air 04/30/17 21:07 66 125/81 (96) 04/30/17 16:20 Room Air 04/30/17 16:20 36.6 04/30/17 15:27 36.4 63 18 125/79 (94) 96 Room Air 04/30/17 14:16 36.4 60 16 128/70 (89) 98 Room Air 04/30/17 11:05 98 Room Air 04/30/17 09:36 36.3 60 14 128/72 (90) 98 Room Air Physical Exam General Appearance: WD/WN, no apparent distress, + pertinent finding ( conversational ) Eyes: normal inspection, PERRL, EOMI, sclerae normal ENT: normal ENT inspection, hearing grossly normal, pharynx normal Neck: supple, no adenopathy, thyroid normal, no JVD, no carotid bruits, trachea midline Respiratory/Chest: chest non-tender, lungs clear, normal breath sounds, no respiratory distress, no accessory muscle use, + decreased breath sounds Cardiovascular: regular rate, rhythm, no edema, no gallop, no JVD, no murmur Abdomen: normal bowel sounds, non tender, soft, no organomegaly, no pulsatile mass Extremities: no pedal edema, no calf tenderness, normal capillary refill, pelvis stable, + pertinent finding (left knee in dress, bilateral lower exts pulses were positive and symmetric) Neurologic/Psychiatric: plant director II-XII nml as tested, no motor/sensory deficits, alert, normal mood/affect, oriented x 3 Skin: normal color, warm/dry, no rash Lymphatic: no adenopathy Assessment and Plan 81 yo female with Left TKA to orthopedic service, hospitalist consulted for medical management h/o PE now OFF ELIQUIS. Per document, Pt was cleared to STOP HER ELIQUIS about 1.5 months ago after discussion with her Associate Professor Of Library Media and her PCP. Her hypercoag workup was negative and her PE was provoked by a long car ride. I confirm the important information with patient's and patient . Therefore, will be on ASA bid for DVT prophylaxis post-op, -ASA 81 bid for DVT proph, this will be management per primary team -pain control, doing fairly okay - Nausea is improved , antiemetics as needed Hypertension, stable continue home BP meds Discussed with patient and answered all question Advised patient to follow-up with PCP after discharge and call PCP if have any questions Continued [facility] stay due to: other Discharge planning: other (discharge plan will be per primary team)
--- NOTE | 2017-05-01 09:54 | DISCHARGE SUMMARY ---
DATE OF DISCHARGE: 05/01/2017. DISCHARGE DIAGNOSIS: Degenerative joint disease left knee. SECONDARY DIAGNOSES: Hypertension, history of pulmonary embolism, coronary artery disease status post cardiac catheterization, gastroesophageal reflux disease, obesity. CONSULTS: Jimena Felipe PA-C/Malu Moran M.D. COMPLICATIONS: None. PROCEDURES: Left total knee arthroplasty performed by Dr. Sahni on 04/29/2017. BRIEF HISTORY: As dictated in history and physical. HOSPITAL SUMMARY: The patient was admitted on the above-noted date and had the above-noted surgery performed which she tolerated well. On the first postoperative day, patient was feeling well. Neurovascularly intact. Dressings clean, dry and intact. Toes were mobile. Vital signs were stable. She was afebrile. Hemoglobin was 11.4 and she was started on physical therapy protocol and continued on DVT prophylaxis, pain management and medical management per [facility] hospitalist service. By her second postoperative day, she was continuing to feel well and pain was controlled. Dressings clean, dry and intact. Toes were mobile. Calves were soft and nontender. Vital signs were stable. She was afebrile. She was remaining medically stable as well as orthopedically stable. Of note, the patient had been on Eliquis that had been treatment for her pulmonary embolus in the past. This has been stopped 1-1/2 months prior to surgery after Dr. Luna had talked to her gas line installer at her primary care physician. Plans are to continue to keep that stopped secondary to her PE was provoked by a long car ride. Plans are to continue aspirin 81 mg b.i.d. for DVT prophylaxis with no plans to restart her Eliquis at this time. She was thusly discharged to home on 05/01/2017 with home health services. For further review, please see chart. LAB AND X-RAY DATA: As per chart. DISCHARGE INSTRUCTIONS: The patient was discharged to home in satisfactory condition on 05/01/2017. DIET: Heart healthy diet. ACTIVITY: Weightbearing as tolerated left lower extremity. Follow TK instruction sheets and special care instructions as noted. Follow up with Dr. Sahni in 2 weeks. The patient to call for appointment if one has not been made for you. DISCHARGE MEDICATIONS: Acetaminophen 1000 mg p.o. q. 8 hours, Colace 100 mg p.o. b.i.d., Zofran 8 mg p.o. q. 8 hours, oxycodone 5-10 mg p.o. q. 4 hours p.r.n., tramadol 50-100 mg p.o. q. 4 hours p.r.n. Resume home meds as listed.
[2017-05-01 09:59] VITALS: BP 132/74; PULSE 62; TEMP 36.7; O2SAT 92
[2017-05-01 10:54] VITALS: BP 143/78
[2017-05-01] MEDS ORDERED: NURSING VERBAL MED ORDER ONE (14:15)
[2017-05-01] MEDS ORDERED: KETOROLAC TROMETHAMINE 15 MG/ML VIAL ONE (14:18)
== END 2017-05-01 15:22 | disposition home health service (06) | DRG 470 ==
LOC: C.ACU 08:10 → C.3E 09:00 → ENRESERV 12:49
PROVIDERS: ADMIT Orthopaedic Surgery; ATTEND Orthopaedic Surgery
PROC: 0SRD0J9 Replacement of Left Knee Joint with Synthetic Substitute, Cemented, Open Approach (ICD-10-PCS; principal; 2017-04-29 10:15)
DX: M17.12 Unilateral primary osteoarthritis, left knee (principal); I12.9 Hypertensive chronic kidney disease with stage 1 through stage 4 chronic kidney disease, or unspecified chronic kidney disease; I25.10 Atherosclerotic heart disease of native coronary artery without angina pectoris; K21.9 Gastro-esophageal reflux disease without esophagitis; E66.9 Obesity, unspecified; N18.3 Chronic kidney disease, stage 3 (moderate); Z86.711 Personal history of pulmonary embolism; Z79.01 Long term (current) use of anticoagulants; Z68.30 Body mass index [BMI] 30.0-30.9, adult